=== PATIENT | female | born 1985 | race Caucasian/White ===

== ENCOUNTER 2017-07-29 17:20 | Inpatient (IN) | payer OTHER ==
[~2017-07-29] VITALS: Ht 165.1 cm; Wt 60.0 kg
[2017-07-29 20:58] VITALS: BP 133/88; PULSE 131; TEMP 37.6; O2SAT 95; Ht 165.1 cm; Wt 60.0 kg
[2017-07-29] MEDS ORDERED: CYCL10TA6 PO (22:14)
[2017-07-29] MEDS ORDERED: VNTHFA/IN INH (22:14)
[2017-07-29] MEDS ORDERED: FENT75DI2 (22:14)
[2017-07-29] MEDS ORDERED: SERT50TA PO (22:14)
[2017-07-29] MEDS ORDERED: SUMA100T16 PO (22:14)
[2017-07-29] MEDS ORDERED: GABA800T PO (22:14)
[2017-07-29] MEDS ORDERED: ATRINS NEB (22:14)
[2017-07-29] MEDS ORDERED: LORA-741 PO (22:14)
[2017-07-29] MEDS ORDERED: OXYC20TA50 PO (22:14)
[2017-07-29] MEDS ORDERED: FERR1TAB23 PO (22:14)
[2017-07-29] MEDS ORDERED: ZOLP10TA6 PO (22:14)
[2017-07-29] MEDS ORDERED: VANCOMYCIN INJ 1,000 MG in SODIUM CHLORIDE 0.9% 250ML 250 ML IV STA (22:17)
[2017-07-29] MEDS ORDERED: ALUMINUM/MAGNESIUM/SIMETH (MAALOX MAX) 30 ML UDC PO PRN (22:30)
[2017-07-29] MEDS ORDERED: SODIUM CHLORIDE 0.9% IV SCH (22:30)
[2017-07-29] MEDS ORDERED: DAPTOMYCIN IV SCH (22:30)
[2017-07-29] MEDS ORDERED: ONDANSETRON INJ 2 MG/ML 2 ML VIAL IV PRN (22:30)
[2017-07-29] MEDS ORDERED: ACETAMINOPHEN 325 MG TAB PO PRN (22:30)
[2017-07-29] MEDS ORDERED: MAGNESIUM HYDROXIDE SUSP 30 ML UDC PO PRN (22:30)
[2017-07-29] MEDS ORDERED: ENOXAPARIN 40 MG/0.4 ML SYR SC SCH (22:30)
[2017-07-29] MEDS: AZTREONAM IV 2,000 MG in DEXTROSE 5% 100ML 100 ML IV SCH (23:00)
[2017-07-29] MEDS: NSS + 20MEQ KCL 1000ML 1,000 ML IV SCH (23:08)
[2017-07-29] MEDS ORDERED: PNEUMOCOCCAL POLYSACCHARIDES 25 MCG/0.5 ML VIAL/SYR IM. ONE (23:45)
[2017-07-29] MEDS ORDERED: PNEUMOCOCCAL ADMINISTRATION CHARGE ONE (23:45)
[2017-07-29 23:57] LABS: URINE APPEARANCE TURBID (CLEAR); URINE BILIRUBIN NEG (NEG); URINE COLOR YELLOW; URINE EPITHELIAL CELL AUTO >30 /lpf (0-5); URINE NITRITE NEG (NEG); URINE PH 5.5 (4.5-7.5); URINE SPECIFIC GRAVITY 1.016 (1.000-1.030); UROBILINOGEN NEG (NEG); ZZURINE CULT IF INDIC CATH NO
[2017-07-30 00:06] LABS: INR 3.4 (0.9-1.1); PARTIAL THROMBOPLASTIN RATIO 2.6; PROTHROMBIN TIME (PATIENT) 38.2 SECONDS (9.0-12.0)
[2017-07-30 00:12] LABS: ALB/GLOB RATIO 0.5 (0.9-2); BUN/CREATININE RATIO 32.9 (10-20); CALCIUM 7.9 mg/dl (8.5-10.1); CREATININE 0.63 mg/dl (0.60-1.20); POTASSIUM 2.2 mmol/L (3.5-5.1)
[2017-07-30 00:17] LABS: BASO % 0.1 %; BASO ABS # 0.02 K/uL (0-0.2); COMPLETE YES; DOHLE BODIES 1+; ECHINOCYTES 1+; EOS % 0.4 %; HEMATOCRIT 24.2 % (37-47); HYPOCHROMIA PRESENT; IG% 2.2 %; LYMPH % 5.4 %; MEAN CELL VOLUME 68.6 fL (80-100); MEAN CORPUSCULAR HEMOGLOBIN 21.8 pg (25-34); MEAN CORPUSCULAR HGB CONC 31.8 g/dl (32-36); MEAN PLATELET VOLUME 8.2 fL (7.4-10.4); MICROCYTOSIS PRESENT; MONO % 5.7 %; NEUT % 86.2 %; OVALOCYTES 1+; PLATELET COUNT 406 K/uL (130-400); RED BLOOD COUNT 3.53 M/uL (4.2-5.4); TOXIC GRANULATION 1+; WHITE BLOOD COUNT 14.76 K/uL (4.8-10.8)
[2017-07-30 00:19] LABS: BENZODIAZEPINE, URINE NEG (NEG); COCAINE,URINE NEG (NEG); PHENCYCLIDINE, URINE NEG (NEG)
[2017-07-30 00:22] LABS: MANUAL MICROSCOPIC REQUIRED? NO; REVIEW REQ? YES
[2017-07-30 00:27] VITALS: BP 128/65; PULSE 144; TEMP 38.7; O2SAT 94
[2017-07-30] MEDS ORDERED: NURSING VERBAL MED ORDER ONE (00:30)
[2017-07-30] MEDS ORDERED: DAPTOmycin IV 350 MG in SODIUM CHLORIDE 0.9% 50ML 50 ML IV SCH (00:30)
[2017-07-30] MEDS: POTASSIUM CHLR 10MEQ / WTR IV SCH ×6 (00:32→05:55)
[2017-07-30] MEDS ORDERED: METOPROLOL TARTRATE 1 MG/ML VIAL ONE (00:35)
[2017-07-30] MEDS ORDERED: METOPROLOL TARTRATE 1 MG/ML VIAL IV STA (00:42)
[2017-07-30] MEDS ORDERED: ACETAMINOPHEN 650 MG SUPP PR ONE (00:42)
[2017-07-30] MEDS ORDERED: ACETAMINOPHEN 650 MG SUPP PR STA (00:43)
[2017-07-30] MEDS ORDERED: PHYTONADIONE INJ 10 MG in SODIUM CHLORIDE 0.9% 50ML 50 ML IV STA (01:15)
[2017-07-30] MEDS ORDERED: ALBUMIN HUMAN 25% 12.5 GM/50 ML VIAL IV STA (01:15)
[2017-07-30] MEDS ORDERED: ONDANSETRON INJ 2 MG/ML 2 ML VIAL IV PRN (02:30)
--- NOTE | 2017-07-30 03:02 | History and Physical ---
History & Physical Date & Time of Service: Jul 29, 2017 at 23:30 Chief Complaint: Sepsis, Cellulitis Of The Hand Primary Care Physician: Kareem Edwards D.O. History of Present Illness Source: patient, family, hospital records 32 yo F transfer from / hx of IV Drug abuse , Hx osteomyelitis of the Right Hip followed by Orthopedics in [place] presenting with 7 day hx of right hand swelling. History is per medical record because patient is unable to provide history due to sedation. She presented to outside hospital w/ Right hand swelling after reported fall and injury to hand 1 wk prior to arrival. CT Hand was negative for fx , abscess, or osteomyelitis,. White ct was 18.4 Lactate 2.5, K 2.1, CK 321. She was given a central line after repeated failed attempts to gain peripheral IV access. She got IL IVS x3, 1 gm Vanc and Haldol. Foe Hypokalemia, she was given IV K 20 meq and 40 PO meq K and 25 meq Mg. Past Medical/Surgical History Medical Problems: (1) Femur fracture, right Status: Resolved (2) Osteomyelitis Status: Chronic Family History Patient reports no known family medical history. Social History Smoking Status: Current Every Day Smoker Drug Use: none Housing status: lives with family Immunizations History of Influenza Vaccine: No History of Tetanus Vaccine?: No Tetanus Immunization Date: Jun 10, 2011 History of Pneumococcal: No History of Hepatitis B Vaccine: No Multi-Drug Resistant Organisms History of MDRO: Yes Allergies Coded Allergies: Morphine and Related (Unverified Allergy, Intermediate, HIVES, 03/09/16) Cefazolin (Unverified Allergy, Unknown, ., 03/09/16) Clindamycin (Unverified Allergy, Unknown, ., 03/09/16) Penicillins (Unverified Allergy, Unknown, ., 03/09/16) Home Medications Scheduled Albuterol Hfa (Ventolin Hfa), 2 PUFFS INH Q6H Aztreonam In Dextrose (Azactam), 2,000 MG IV Q8 Daptomycin (Daptomycin), 500 MG IV Q24H Fentanyl (Fentanyl), 1 PATCH Q3 DAYS Gabapentin (Neurontin), 800 MG PO QID Ipratropium [place] (Ipratropium [place]), 1 VIAL NEB Q 4-6 HOURS Metronidazole in NaCl (Metronidazole 500-0.79 mg/100Ml-%), 500 MG IV Q8 Sertraline (Zoloft), 1 TAB PO QID Sodium Chloride Flush (Normal Saline Flush), 125 ML IV UD Review of Systems could not assess due to patient's mental status Physical Exam Vital Signs Date Time Temp Pulse Resp B/P (MAP) Pulse Ox O2 Delivery O2 Flow Rate FiO2 07/29/17 20:58 37.6 131 17 133/88 95 Room Air General Appearance: + pertinent finding GENERAL: toxic appearing, opens eyes to voice, does not follow commands EYE EXAM: normal conjunctiva, PERRL and EOM's grossly intact OROPHARYNX: no exudate, no erythema, lips, buccal mucosa, and tongue normal and mucous membranes are moist NECK: supple, no nuchal rigidity, no adenopathy, non-tender LUNGS: Clear to auscultation. Normal chest wall mechanics HEART: Tachycardic, S1 normal and S2 normal ABDOMEN: abdomen soft, non-tender, normo-active bowel sounds, no masses, no rebound or guarding. BACK: Back is symmetrical on inspection and there is no deformity, no midline tenderness, no CVA tenderness. SKIN: no rashes and no bruising UPPER EXTREMITIES: upper extremities are grossly normal. LOWER EXTREMITIES: Rt hip, bandage in place no purulent drainage NEURO EXAM: could not assess. patient not alert, Diagnostics Laboratory Results Results Past 24 Hours Test 07/29/17 22:12 07/29/17 22:17 07/29/17 22:55 07/29/17 22:56 Range/Units Microbiology Results 07/29/17 Blood Culture, Ordered Pending 07/29/17 Blood Culture, Ordered Pending Impression Assessment and Plan 32 yo F transfer from w/ hx of IV Drug abuse , Hx osteomyelitis of the Right Hip followed by Orthopedics in [place] presenting with 7 day hx of right hand swelling admitted from outside hospital with sepsis likely secondary to cellulitis of RT hand. Sepsis, Rt hand swelling, HX osteomyelitis Rt hip - Suspected Cellulitis in setting of hx of rt hip osteomyelitis, hx of IV drug abuse - Tachycardia, temp 37.6 - Labs prior to arrival: Wht Ct 18.4 Elevated Lactate 2.5 - IV Fluids - Aztreonam, Daptomycin -CBC, Blood cx's - ID consulted -Wound care consult Hypokalemia - IV NS with 20 meq K in addition to K riders x 6 - likely contributor to tachycardia - Recheck AM labs for potassium - Check EKG Tachycardia 130s to 140;s - Dehydration vs. Hypokalemia - BP normal DVT prophylaxis -Lovenox Full code Attending Addendum: I have physically seen and examined this patient, have directed the resident's medical activities, and agree with the H&P as noted above with the following exceptions as noted. The patient is awakens to voice, chronically ill-appearing, does not follow commands, lying in bed and in no acute distress. HEENT--mucous membranes and oropharynx dry. Neck--supple, no JVD or bruits, thyroid normal, trachea midline, no adenopathy. Heart--normal S1 and S2, no extra beats, no murmurs, rubs or gallops. Lungs--few coarse breath sounds, diminished throughout, no respiratory distress , no accessory muscle use. Abdomen--normal bowel sounds and soft, nontender and nondistended, no hernias or masses, no organomegaly. Extremities--no cyanosis, clubbing or edema. There are good distal pulses b/l. Dermatologic--normal skin turgor, normal color, warm and dry, no abnormal lymph nodes, no rash. Neurologic--cranial nerves II through XII grossly intact, motor and sensory examination normal. Rheumatologic--right hand swollen, erythematous and warm Psychiatric--minimally responsive Assessment and Plan: 1. Right hand cellulitis/sepsis-- Daptomycin IV, aztreonam IV Will likely need further imaging to assess for possible osteomyelitis. Consult infectious disease Consult wound care 2. Liver failure-- INR 3.4, with relatively normal other liver function tests. Give vitamin K 10 mg IV. Repeat INR in 4 hours. If no significant improvement, should be transferred to a liver transplant center. 3. Sinus tachycardia/hypotension/hypokalemia-- Albumin is 1.9. Give albumin 25 g IV now, repeat in one hour, and then every 6 hours. When necessary Lopressor IV. Aggressively replace potassium IV and then repeat laboratories after 6K riders. Aggressive fluid rehydration with normal saline with 20 mEq potassium 4. Anemia-- Hemoglobin upon entry is 7.7 Maybe a consumptive basis associated with DIC, in part nutritional, no sign of blood loss. No need for transfusion yet. Level of Care Telemetry Advanced Directives Existing Advance Directive: No Existing Living Will: No Existing Power of Piece [place]: No Resuscitation Status FULL RESUSCITATION VTE Prophylaxis VTE Risk Assessment Done? Y/N: Yes Risk Level: Moderate Given or contraindicated: Enoxaparin (Lovenox)SQ Resident Tracking Resident Involvement: Resident Care Provided Care Provided: Adult Hospital Medicine
[2017-07-30 03:23] VITALS: BP 130/62; PULSE 141; TEMP 37.7; O2SAT 95
[2017-07-30 04:47] LABS: PARTIAL THROMBOPLASTIN RATIO 2.5; PROTHROMBIN TIME (PATIENT) 21.9 SECONDS (9.0-12.0)
[2017-07-30 04:54] LABS: BASO % 0.2 %; BASO ABS # 0.02 K/uL (0-0.2); COMPLETE YES; DOHLE BODIES 1+; EOS % 0.3 %; HEMATOCRIT 22.2 % (37-47); HYPOCHROMIA PRESENT; IG% 1.7 %; LYMPH % 8.1 %; LYMPH ABS # 1.07 K/uL (1.2-3.4); MEAN CELL VOLUME 68.5 fL (80-100); MEAN CORPUSCULAR HEMOGLOBIN 21.6 pg (25-34); MEAN CORPUSCULAR HGB CONC 31.5 g/dl (32-36); MEAN PLATELET VOLUME 8.2 fL (7.4-10.4); MICROCYTOSIS PRESENT; MONO % 6.7 %; PLATELET COUNT 360 K/uL (130-400); POIKILOCYTOSIS PRESENT; RED BLOOD COUNT 3.24 M/uL (4.2-5.4); TOXIC GRANULATION 1+; WHITE BLOOD COUNT 13.16 K/uL (4.8-10.8)
[2017-07-30] MEDS: AZTREONAM IV 2,000 MG in DEXTROSE 5% 100ML 100 ML IV SCH ×2 (05:29→05:47)
[2017-07-30] MEDS ORDERED: ALBUMIN HUMAN 25% 12.5 GM/50 ML VIAL IV SCH (06:00)
[2017-07-30] MEDS: NSS + 20MEQ KCL 1000ML 1,000 ML IV SCH (06:14)
[2017-07-30 07:55] VITALS: BP 125/84; PULSE 120; TEMP 37; O2SAT 88
[2017-07-30] MEDS ORDERED: NSS + 20MEQ KCL 1000ML 1,000 ML IV SCH (08:17)
[2017-07-30 09:16] LABS: BUN/CREATININE RATIO 37.9 (10-20); CALCIUM 8.3 mg/dl (8.5-10.1); CREATININE 0.52 mg/dl (0.60-1.20); POTASSIUM 2.4 mmol/L (3.5-5.1)
[2017-07-30 09:18] LABS: HEMATOCRIT 21.5 % (37-47); MEAN CELL VOLUME 68.7 fL (80-100); MEAN CORPUSCULAR HGB CONC 32.1 g/dl (32-36); MEAN PLATELET VOLUME 7.8 fL (7.4-10.4); PLATELET COUNT 342 K/uL (130-400); RED BLOOD COUNT 3.13 M/uL (4.2-5.4); WHITE BLOOD COUNT 12.37 K/uL (4.8-10.8)
[2017-07-30 09:20] LABS: BASO % 0.1 %; BASO ABS # 0.01 K/uL (0-0.2); COMPLETE YES; DOHLE BODIES 1+; EOS % 0.7 %; IG% 2.2 %; LYMPH % 9.9 %; LYMPH ABS # 1.22 K/uL (1.2-3.4); MICROCYTOSIS PRESENT; MONO % 5.3 %; NEUT % 81.8 %; PLT ESTIMATE NORMAL; TARGET CELLS 1+; TOXIC GRANULATION 1+
[2017-07-30 09:24] LABS: FERRITIN 137.5 ng/ml (8.0-388.0); PHOSPHORUS 1.6 mg/dl (2.5-4.9)
[2017-07-30] MEDS ORDERED: POTASSIUM PHOS 3 MMOL/1 ML INFUSION IV STA (09:35)
[2017-07-30] MEDS ORDERED: POTASSIUM PHOSPHATE INJ 30 MMOL in SODIUM CHLORIDE 0.9% 500ML 500 ML IV ONE (10:30)
[2017-07-30 11:12] VITALS: BP 133/61; PULSE 122; TEMP 38.4; O2SAT 100
[2017-07-30] MEDS: POTASSIUM CHLR 20 MEQ / WTR 20 MEQ in PREMIXED WATER 100 ML IV SCH ×2 (11:15→13:18)
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
--- NOTE | 2017-07-30 13:36 | ECHOCARDIOGRAM REPORT ---
*NOTICE TO RECEIVING CONSTITUTION PARTY AGENCY This information is strictly Confidential and protected under [place] law. [place] law prohibits you from making any further disclosure of this information unless further disclosure is expressly permitted by the written consent of the person to whom it pertains or is authorized by law. A general authorization for the release of medical or other information is not sufficient for this purpose. Hospital accepts no responsibility if the information is made available to any other person, INCLUDING THE PATIENT. Interpretation Summary * Conclusions -- * 1. Normal LV size and wall thickness. * 2. Normal LV systolic function. LVEF 65-70%. No regional wall motion abnormalities. * 3. Normal RV size and function. * 4. No significant valvular pathology. * 5. No prior studies for comparison. Procedure Details * Left Ventricle The left ventricle is grossly normal size. There is normal left ventricular wall thickness. Ejection Fraction = 65-70%. * Right Ventricle The right ventricle is grossly normal size. The right ventricular systolic function is normal as assessed by tricuspid annular plane systolic excursion (TAPSE) (normal >1.5 cm). * Atria The left atrial size is normal. Right atrial size is normal. * Mitral Valve The mitral valve is grossly normal. There is no mitral valve stenosis. Significant mitral regurgitation is absent. * Tricuspid Valve The tricuspid valve is not well visualized, but is grossly normal. There is no tricuspid stenosis. Significant tricuspid regurgitation is absent. * Aortic Valve The aortic valve opens well. No hemodynamically significant valvular aortic stenosis. There is no significant aortic regurgitation. * Pulmonic Valve The pulmonary valve is inadequately visualized, but the Doppler data is adequate for interpretation. Pulmonic stenosis is absent. There is no significant pulmonary regurgitation. * Great Vessels The aortic root and proximal ascending aorta are normal sized. * Pericardium/Pleural There is no pericardial effusion. * Great Vessels Normal inferior vena cava size and collapsability with sniff indicates a normal right atrial pressure of 3 mmHg * * MMode 2D Measurements and Calculations * RVDd 3.4 cm * IVSd 0.81 cm * * LVIDd 4.5 cm * LVIDs 2.5 cm * LVPWd 0.85 cm * * IVS/LVPW 0.95 * FS 45.6 % * EDV(Teich) 92.6 ml * ESV(Teich) 21.2 ml * EF(Teich) 77.1 % * * EDV(cubed) 91.4 ml * ESV(cubed) 14.7 ml * EF(cubed) 83.9 % * * LV mass(C)d 119.1 grams * LV mass(C)dI 71.8 grams/m\S\2 * * SV(Teich) 71.4 ml * SI(Teich) 43.1 ml/m\S\2 * SV(cubed) 76.7 ml * SI(cubed) 46.2 ml/m\S\2 * * Ao root diam 2.7 cm * Ao root area 5.8 cm\S\2 * * LVOT diam 2.1 cm * LVOT area 3.5 cm\S\2 * * LVAd ap4 31.6 cm\S\2 * LVLd ap4 9.0 cm * EDV(MOD-sp4) 90.4 ml * EDV(sp4-el) 93.6 ml * LVAs ap4 16.3 cm\S\2 * LVLs ap4 7.5 cm * ESV(MOD-sp4) 31.1 ml * ESV(sp4-el) 30.1 ml * EF(MOD-sp4) 65.6 % * EF(sp4-el) 67.8 % * * LVAd ap2 31.1 cm\S\2 * LVLd ap2 9.1 cm * EDV(MOD-sp2) 88.0 ml * EDV(sp2-el) 89.7 ml * LVAs ap2 13.4 cm\S\2 * LVLs ap2 7.3 cm * ESV(MOD-sp2) 22.6 ml * ESV(sp2-el) 21.0 ml * EF(MOD-sp2) 74.3 % * EF(sp2-el) 76.5 % * * LVLd %diff 1.1 % * EDV(MOD-bp) 89.6 ml * LVLs %diff -2.96 % * ESV(MOD-bp) 26.8 ml * EF(MOD-bp) 70.1 % * * SV(MOD-sp4) 59.3 ml * SI(MOD-sp4) 35.8 ml/m\S\2 * * SV(MOD-sp2) 65.3 ml * SI(MOD-sp2) 39.4 ml/m\S\2 * * SV(MOD-bp) 62.8 ml * SI(MOD-bp) 37.9 ml/m\S\2 * * SV(sp4-el) 63.5 ml * SI(sp4-el) 38.3 ml/m\S\2 * * SV(sp2-el) 68.7 ml * SI(sp2-el) 41.4 ml/m\S\2 * * * Doppler Measurements and Calculations * MV E max brenda 88.4 cm/sec * MV A max brenda 67.4 cm/sec * * MV E/A 1.3 * * MV dec time 0.14 sec * * Ao V2 max 188.3 cm/sec * Ao max PG 14.2 mmHg * Ao max PG (full) 3.8 mmHg * AYAAN(V,A) 3.0 cm\S\2 * AYAAN(V,D) 3.0 cm\S\2 * * LV V1 max PG 10.4 mmHg * * LV V1 max 161.1 cm/sec * * TR max brenda 286.4 cm/sec * * *
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
[2017-07-30] MEDS ORDERED: METRONIDAZOLE / NSS 500 MG in PREMIXED NSS 100 ML IV SCH (14:00)
[2017-07-30] MEDS ORDERED: POTASSIUM CHLR 20 MEQ / WTR 20 MEQ in PREMIXED WATER 100 ML IV ONE (14:45)
[2017-07-30 15:00] VITALS: BP 144/67; PULSE 125; TEMP 37.9; O2SAT 98
[2017-07-30] MEDS ORDERED: [UNRECOGNIZED DRUG - CODE] IV (15:01)
[2017-07-30] MEDS ORDERED: DAPT500I IV (15:01)
[2017-07-30] MEDS ORDERED: SODI0.9I55 IV (15:01)
[2017-07-30] MEDS ORDERED: METR1INJ2 IV (15:01)
--- NOTE | 2017-07-30 15:04 | Discharge Instructions ---
Discharge Instructions Date of Service Jul 30, 2017. Admission Reason for Admission: Sepsis, Cellulitis Of The Hand Discharge Discharge Diagnosis / Problem: sepsis, hand infection Discharge Goals Goal(s): Diagnostic testing, Therapeutic intervention Activity Recommendations Activity Level: Assistance Required . Additional Information Patient informed of condition: No Advance Directives: No DNR: No Level of Care: Other Communicable Disease: Yes (hand infection of yet to be determined bacteria) Prognosis: Other (requiring interventions not available here) Instructions / Follow-Up Instructions / Follow-Up see medical discharge summary Current Hospital Diet Discharge Diet Recommended Diet: N/A (NPO, did have sips up to about 1p but no solids) Pending Studies Studies pending at discharge: yes List of pending studies: blood cultures done at [facility] and [facility] drawn at admission no growth yet Medical Emergencies . Who to Call and When: Medical Emergencies: If at any time you feel your situation is an emergency, please call 911 immediately. . Non-Emergent Contact Non-Emergency issues call your: Primary Care Provider . . "Provider Documentation" section prepared by Robby Huang. . Core Measure Problem Core Measures: None
[2017-07-30 15:07] LABS: BUN/CREATININE RATIO 23.1 (10-20); CALCIUM 7.5 mg/dl (8.5-10.1); CREATININE 0.63 mg/dl (0.60-1.20); POTASSIUM 3.1 mmol/L (3.5-5.1)
--- NOTE | 2017-07-30 15:12 | Discharge Summary ---
Discharge Summary Date of Service Jul 30, 2017. Discharge Summary Admission Date: Jul 29, 2017 at 21:08 Discharge Date: Jul 30, 2017 Discharge Disposition: Acute care facility Principal Diagnosis: sepsis hand cellulitis Problems/Secondary Diagnoses: full dc summary to follow by R1 Dr Heard, but in order to facilitate care at [facility] prelim dc summary with this document Immunizations: Have You Had Influenza Vaccine: No History of Tetanus Vaccine?: No Tetanus Immunization Date: Jun 10, 2011 History of Pneumococcal: No History of Hepatitis B Vaccine: No Procedures: echo (transthoracic) without vegetations CT hand at [facility] findings c/w cellulitis but no abscess/air labs w leukocytosis (improving) lactic acidosis (improving), anemia (mother believes chronic - Hgb ~7 stable) Fe deficiency cultures pending (both here and at [facility]) Consultations: ID ortho Medication Reconciliation New Medications: Aztreonam In Dextrose (Azactam) 1 Inj Inj 2000 MG IV Q8, #1 UNIT Daptomycin (Daptomycin) 500 Mg Inj 500 MG IV Q24H, #1 UNIT last dose at 0030 07/30 Metronidazole in NaCl (Metronidazole 500-0.79 mg/100Ml-%) 1 Inj Inj 500 MG IV Q8, #1 UNIT Sodium Chloride Flush (Normal Saline Flush) 0.9 % Inj 125 ML IV UD, #1 UNIT currently on NSS w 20K @ 125/hr Continued Medications: Albuterol Hfa (Ventolin Hfa) 200 Puffs/73665 Mcg Aers 2 PUFFS INH Q6H for Shortness of Breath, #1 INHALER Fentanyl (Fentanyl) 75 Mcg/Hr Dis 1 PATCH Q3 DAYS Gabapentin (Neurontin) 800 Mg Tab 800 MG PO QID, TAB Ipratropium [place] (Ipratropium [place]) 0.5 Mg/2.5 Ml Nebu 1 VIAL NEB Q 4-6 HOURS for Shortness of Breath for 30 Days, #300 ML 5 Refills Sertraline (Zoloft) 50 Mg Tab 1 TAB PO QID for 30 Days, #120 TAB 2 Refills Discontinued Medications: Cyclobenzaprine Hcl (Flexeril) 10 Mg Tab 1 TAB PO BID for 30 Days, #60 TAB Ferrous Sulfate (Iron) 325 Mg Tab 325 MG PO BID Lorazepam (Ativan) 0.5 Mg Tab 0.5 MG PO DAILY PRN for Anxiety, TAB Oxycodone Hcl (Oxycontin) 20 Mg Tab 0.5 TAB PO QID for 30 Days, #60 TAB Sumatriptan Succinate (Imitrex) 100 Mg Tab 100 MG PO PRN for Headache, TAB Zolpidem Tartrate (Zolpidem Tartrate) 10 Mg Tab 1 TAB PO HS PRN for Insomnia for 30 Days, #30 TAB 2 Refills Discharge Exam Physical Exam: General Appearance: + mild distress (off and on somnolent although fatigued/ oriented when awake) Eyes: EOMI ENT: hearing grossly normal, + pertinent finding (tongue w blood, laceration across tongue) Neck: trachea midline Respiratory/Chest: lungs clear, normal breath sounds, no respiratory distress, no accessory muscle use Cardiovascular: + tachycardia Abdomen / GI: non tender, soft Extremities: + pertinent finding (R hand large ulceration w exudate across extensor surface, distally n/v intact but swollen, errythematous and scattered ulcerations, L hand also swollen w some erythema no ulcerations or lesions) Neurologic/Psychiatric: health services director II-XII nml as tested, alert Skin: normal color, warm/dry, + pertinent finding (R hand dense diffuse erythema, L hand smaller area of erythema. legs w various ulcerations in various stages of healing none with erythema or exudate) Hospital Course fell ~2 days ago at home, hurt hand. stayed at home but apparently the next day hand still hurt a lot - something popped sounds like exudate came out - then later that day was more unresponsive and talking gibberish, brought to [facility] found to be septic transferred here - septic from hand, ddx being hand infection from skin trauma/ bacterial superinfection vs hand infection w more aggressive staph/toxin mediated staph vs (with L hand and other scattered ulcers) endocarditis (pt and fiance deny IVDA currently, but did previously and mom notes possible), less likely that chronic hip infection involved. 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 Discharge Instructions Please refer to the electronic Patient Visit Report (Discharge Instructions) for additional information.
[2017-07-30] MEDS ORDERED: MEPERIDINE HCL 25 MG/ML CARP IV ONE (15:15)
[2017-07-30 16:29] VITALS: BP 144/67; PULSE 125; TEMP 37.9; O2SAT 98
--- NOTE | 2017-07-30 21:02 | Discharge Summary ---
Discharge Summary Date of Service Jul 30, 2017. Discharge Summary Admission Date: Jul 29, 2017 at 21:08 Discharge Date: Jul 30, 2017 Discharge Disposition: Acute care facility Principal Diagnosis: sepsis, hand cellulitis Problems/Secondary Diagnoses: R hip osteomyelitis Hupokalemia Tachycardia Immunizations: Have You Had Influenza Vaccine: No History of Tetanus Vaccine?: No Tetanus Immunization Date: Jun 10, 2011 History of Pneumococcal: No History of Hepatitis B Vaccine: No Procedures: echo (transthoracic) without vegetations Interpretation Summary * Conclusions -- * 1. Normal LV size and wall thickness. * 2. Normal LV systolic function. LVEF 65-70%. No regional wall motion abnormalities. * 3. Normal RV size and function. * 4. No significant valvular pathology. * 5. No prior studies for comparison. Procedure Details * Left Ventricle The left ventricle is grossly normal size. There is normal left ventricular wall thickness. Ejection Fraction = 65-70%. * Right Ventricle The right ventricle is grossly normal size. The right ventricular systolic function is normal as assessed by tricuspid annular plane systolic excursion (TAPSE) (normal >1.5 cm). * Atria The left atrial size is normal. Right atrial size is normal. * Mitral Valve The mitral valve is grossly normal. There is no mitral valve stenosis. Significant mitral regurgitation is absent. * Tricuspid Valve The tricuspid valve is not well visualized, but is grossly normal. There is no tricuspid stenosis. Significant tricuspid regurgitation is absent. * Aortic Valve The aortic valve opens well. No hemodynamically significant valvular aortic stenosis. There is no significant aortic regurgitation. * Pulmonic Valve The pulmonary valve is inadequately visualized, but the Doppler data is adequate for interpretation. Pulmonic stenosis is absent. There is no significant pulmonary regurgitation. * Great Vessels The aortic root and proximal ascending aorta are normal sized. * Pericardium/Pleural There is no pericardial effusion. * Great Vessels Normal inferior vena cava size and collapsability with sniff indicates a normal right atrial pressure of 3 mmHg * * MMode 2D Measurements and Calculations * RVDd 3.4 cm * IVSd 0.81 cm * * LVIDd 4.5 cm * LVIDs 2.5 cm * LVPWd 0.85 cm * * IVS/LVPW 0.95 * FS 45.6 % * EDV(Teich) 92.6 ml * ESV(Teich) 21.2 ml * EF(Teich) 77.1 % * * EDV(cubed) 91.4 ml * ESV(cubed) 14.7 ml * EF(cubed) 83.9 % * * LV mass(C)d 119.1 grams * LV mass(C)dI 71.8 grams/m\S\2 * * SV(Teich) 71.4 ml * SI(Teich) 43.1 ml/m\S\2 * SV(cubed) 76.7 ml * SI(cubed) 46.2 ml/m\S\2 * * Ao root diam 2.7 cm * Ao root area 5.8 cm\S\2 * * LVOT diam 2.1 cm * LVOT area 3.5 cm\S\2 * * LVAd ap4 31.6 cm\S\2 * LVLd ap4 9.0 cm * EDV(MOD-sp4) 90.4 ml * EDV(sp4-el) 93.6 ml * LVAs ap4 16.3 cm\S\2 * LVLs ap4 7.5 cm * ESV(MOD-sp4) 31.1 ml * ESV(sp4-el) 30.1 ml * EF(MOD-sp4) 65.6 % * EF(sp4-el) 67.8 % * * LVAd ap2 31.1 cm\S\2 * LVLd ap2 9.1 cm * EDV(MOD-sp2) 88.0 ml * EDV(sp2-el) 89.7 ml * LVAs ap2 13.4 cm\S\2 * LVLs ap2 7.3 cm * ESV(MOD-sp2) 22.6 ml * ESV(sp2-el) 21.0 ml * EF(MOD-sp2) 74.3 % * EF(sp2-el) 76.5 % * * LVLd %diff 1.1 % * EDV(MOD-bp) 89.6 ml * LVLs %diff -2.96 % * ESV(MOD-bp) 26.8 ml * EF(MOD-bp) 70.1 % * * SV(MOD-sp4) 59.3 ml * SI(MOD-sp4) 35.8 ml/m\S\2 * * SV(MOD-sp2) 65.3 ml * SI(MOD-sp2) 39.4 ml/m\S\2 * * SV(MOD-bp) 62.8 ml * SI(MOD-bp) 37.9 ml/m\S\2 * * SV(sp4-el) 63.5 ml * SI(sp4-el) 38.3 ml/m\S\2 * * SV(sp2-el) 68.7 ml * SI(sp2-el) 41.4 ml/m\S\2 * * * Doppler Measurements and Calculations * MV E max brenda 88.4 cm/sec * MV A max brenda 67.4 cm/sec * * MV E/A 1.3 * * MV dec time 0.14 sec * * Ao V2 max 188.3 cm/sec * Ao max PG 14.2 mmHg * Ao max PG (full) 3.8 mmHg * AYAAN(V,A) 3.0 cm\S\2 * AYAAN(V,D) 3.0 cm\S\2 * * LV V1 max PG 10.4 mmHg * * LV V1 max 161.1 cm/sec * * TR max brenda 286.4 cm/sec CT hand at [facility] findings c/w cellulitis but no abscess/air labs w leukocytosis (improving) lactic acidosis (improving), anemia (mother believes chronic - Hgb ~7 stable) Fe deficiency cultures pending (both here and at [facility]) Consultations: ID: Dr. Anna Necrotic infection of right hand in IV drug abuser, with prior history of MRSA infections, likely with need for aggressive surgical debridement. Would recommend repeat imaging, but transfer to tertiary care center being discussed. Have added metronidazole for anaerobic coverage given the possibility of polymicrobial infection in the setting of drug abuse. Ortho: Dr. Bruno Chronic right hip osteomyelitis with currently actively draining wound, right hand wound with necrotic tissue over the dorsal with likely fluid collection under the wound and left hand cellulitis This patient is unfortunately very highly complex and difficult situation to manage. Per report there was a CT scan of the right hand that was negative for fluid collection our Y suspicion based on her physical exam is that his change since the time of that imaging. Wound over the dorsal hand appears to be necrotic. I examined the significant bogginess and likely fluid collection underneath the wound. Given her previous history and would be concerning for an aggressive infection after IV drug use into the hand. Given the extent of the wound and the level necrosis she will likely have other exposed tendons and/ or bone and require extensive reconstructive type procedures. I don't feel that this is something we are equipped to manage here. On a more complex level is her chronic osteomyelitis of the right hip. She is currently actively draining from the wound. Per the mother her treating orthopedic surgeons had been recommending amputation of her hip to treat her chronic infections. Based on the x-rays the mother shown me, my suspicion is it would either be a hip disarticulation or even a pelvic hemipelvectomy. This unfortunately is a patient that this simply too complex for us to appropriately treat from an orthopedic standpoint. My recommendation would be for her to be transferred to a tertiary care facility and as she has been treated at [facility] in the past that would be my recommendation for transfer. Medication Reconciliation New Medications: Aztreonam In Dextrose (Azactam) 1 Inj Inj 2000 MG IV Q8, #1 UNIT Daptomycin (Daptomycin) 500 Mg Inj 500 MG IV Q24H, #1 UNIT last dose at 0030 07/30 Metronidazole in NaCl (Metronidazole 500-0.79 mg/100Ml-%) 1 Inj Inj 500 MG IV Q8, #1 UNIT Sodium Chloride Flush (Normal Saline Flush) 0.9 % Inj 125 ML IV UD, #1 UNIT currently on NSS w 20K @ 125/hr Continued Medications: Albuterol Hfa (Ventolin Hfa) 200 Puffs/12262 Mcg Aers 2 PUFFS INH Q6H for Shortness of Breath, #1 INHALER Fentanyl (Fentanyl) 75 Mcg/Hr Dis 1 PATCH Q3 DAYS Gabapentin (Neurontin) 800 Mg Tab 800 MG PO QID, TAB Ipratropium [place] (Ipratropium [place]) 0.5 Mg/2.5 Ml Nebu 1 VIAL NEB Q 4-6 HOURS for Shortness of Breath for 30 Days, #300 ML 5 Refills Sertraline (Zoloft) 50 Mg Tab 1 TAB PO QID for 30 Days, #120 TAB 2 Refills Discontinued Medications: Cyclobenzaprine Hcl (Flexeril) 10 Mg Tab 1 TAB PO BID for 30 Days, #60 TAB Ferrous Sulfate (Iron) 325 Mg Tab 325 MG PO BID Lorazepam (Ativan) 0.5 Mg Tab 0.5 MG PO DAILY PRN for Anxiety, TAB Oxycodone Hcl (Oxycontin) 20 Mg Tab 0.5 TAB PO QID for 30 Days, #60 TAB Sumatriptan Succinate (Imitrex) 100 Mg Tab 100 MG PO PRN for Headache, TAB Zolpidem Tartrate (Zolpidem Tartrate) 10 Mg Tab 1 TAB PO HS PRN for Insomnia for 30 Days, #30 TAB 2 Refills Discharge Exam NOTE: Review of systems limited by Patient's obtunded Mental status Physical Exam: General Appearance: + mild distress (off and on somnolent although fatigued/ oriented when awake) Eyes: EOMI ENT: hearing grossly normal, + pertinent finding (tongue w blood, laceration across tongue) Neck: trachea midline Respiratory/Chest: lungs clear, normal breath sounds, no respiratory distress, no accessory muscle use Cardiovascular: + tachycardia Abdomen / GI: non tender, soft Extremities: + pertinent finding (R hand large ulceration w exudate across extensor surface, distally n/v intact but swollen, errythematous and scattered ulcerations, L hand also swollen w some erythema no ulcerations or lesions) 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 legs w various ulcerations in various stages of healing none with erythema or exudate) Review of Systems: ENT: + problem reported (tongue bleeding/bite) Respiratory: + shortness of breath Musculoskeletal: + joint pain, + problem reported (reported R leg and hand pain) Endocrine: + problem reported (asked for soda, reported thirst) Hospital Course 32 yo F transferred from [facility] w/ hx of IV Drug abuse, and osteomyelitis of right hip (followed by Orthopedics in [place]) presented with right hand swelling secondary to fall last Tuesday (07/26) and sepsis. Sepsis and R hand swelling in the setting of R hip osteomyelitis Unable to obtain a complete history as pt is obtunded however according to records and patient's 8 year old daughter, she fell on hand on Tuesday (07/26) while going down the steps. A blister then formed on her hand which mom popped and something came out (sounds like exudate). Then that day she was unresponsive and talking gibberish and was brought to [facility] where she was found to be septic. At [place], WBC 18.4, lactate 2.1, CT hand negative for fracture, abscess or osteomylitis, CK 321, central line placed after multiple failed peripheral IV access attempts, given vancomycin, haldol, 3L IVF, 20meq of K, and 25 meq of Mg. Here: Pt determined to be septic from hand. The differential being hand infection from skin trauma/bacterial superinfection vs hand infection with more aggressive staph/toxin mediated staph vs (given L hand and other scattered ulcers) endocarditis. Pt and fiance deny IVDA currently, but did previously and mom notes possible. It is less likely that chronic hip infection is involved. R hip has chronic exudative and granulomatous changes but no acute appearing erythema. Patient was tachycardic in the 130-140s with Tmax of 38.7 but her BP remained normal. WBC improved to 12.37 here and lactate improved to 1.1. Patient received multiple boluses of IV fluids with K and 30mmol of KPO4 for Phosphorus of 1.6. Was started on IV Daptomycin and Aztreonam. 2 blood cultures were obtained which are pending and pt had 2 blood cultures less than 24 hours old at [facility] which were so far negative. Wound care and ID were consulted as well as ortho. Ortho saw patient and realized given chronic actively draining right hip osteomyelitis and right hand wound with dorsal necrotic tissue most likely from an aggressive infection after IV drug use into the hand that given the extent of the wound and the level necrosis she will likely have exposed tendons and/or bone if debrided and require extensive reconstructive type procedures, which we are not equipped to manage here. Per the mother, her orthopedic surgeons had been recommending amputation of her hip to treat her chronic infections likely either a hip disarticulation or a pelvic hemipelvectomy. He recommended transfer to a tertiary care facility in particular [facility] given she has established orthopedic care there in the past. 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 Added metronidazole for anaerobic coverage given the possibility of polymicrobial infection in the setting of drug abuse. Hypokalemia: IV NS with 20 meq K in addition to K riders x 6 and 40meQ used to treat hypokalemia of 2.1 (increased to 2.4 on AM labs) after which she was given more K but pt was transferred before further labs could be obtained. Likely also contributed to tachycardia in addition to sepsis. EKG obtained. Tachycardia 130s to 140s: Likely from sepsis vs dehydration vs. Hypokalemia but BP remained normal Care d/w [facility] wrist closer (pt active with [facility] ortho for chronic R hip infection ) for transfer to [facility] via air for definitive care Total Time Spent: Greater than 30 minutes This includes examination of the patient, discharge planning, medication reconciliation, and communication with other providers. Discharge Instructions Please refer to the electronic Patient Visit Report (Discharge Instructions) for additional information. Additional Copies To Kareem Edwards D.O.
[2017-07-31] MEDS ORDERED: DAPTOmycin IV 350 MG in SODIUM CHLORIDE 0.9% 50ML 50 ML IV SCH (00:30)
== END 2017-07-30 16:38 | disposition short-term general hospital (02) | DRG 872 ==
LOC: C.2E 21:08
PROVIDERS: ADMIT Family Medicine; ATTEND Family Medicine
DX: A41.9 Sepsis, unspecified organism (principal); L03.113 Cellulitis of right upper limb; M86.9 Osteomyelitis, unspecified; I96 Gangrene, not elsewhere classified; R65.20 Severe sepsis without septic shock; K72.90 Hepatic failure, unspecified without coma; D64.9 Anemia, unspecified; E87.6 Hypokalemia; F17.200 Nicotine dependence, unspecified, uncomplicated; Z79.899 Other long term (current) drug therapy; Z87.898 Personal history of other specified conditions; Z86.14 Personal history of Methicillin resistant Staphylococcus aureus infection

== ENCOUNTER 2018-04-14 16:29 | Emergency (ER) | payer OTHER ==
[~2018-04-14] VITALS: Ht 167.6 cm; Wt 61.5 kg
[~2018-04-14 16:29] MED LIST: ATRINS NEB; DAPT500I IV; FENT75DI2; GABA800T PO; METR1INJ2 IV; SERT50TA PO; SODI0.9I55 IV; VNTHFA/IN INH; [UNRECOGNIZED DRUG - CODE] IV
[2018-04-14 16:33] VITALS: TEMP 36.6; Ht 167.6 cm; Wt 61.5 kg
[2018-04-14] MEDS ORDERED: HYDROmorphone INJ 1 MG/ML SYR IV STA (16:50)
[2018-04-14] MEDS ORDERED: SODIUM CHLORIDE 0.9% 1000ML 1,000 ML IV STA (17:03)
[2018-04-14] MEDS ORDERED: ONDANSETRON INJ 2 MG/ML 2 ML VIAL IV STA (17:03)
[2018-04-14 17:59] LABS: ALBUMIN 2.8 gm/dl (3.4-5.0); CALCIUM 8.5 mg/dl (8.5-10.1); CREATININE 0.55 mg/dl (0.60-1.20); TOTAL PROTEIN 7.7 gm/dl (6.4-8.2)
[2018-04-14] MEDS ORDERED: FERR1TAB62 PO (18:21)
[2018-04-14] MEDS ORDERED: CYCL10TA6 PO (18:21)
[2018-04-14] MEDS ORDERED: OXYC-292 PO (18:21)
[2018-04-14] MEDS ORDERED: FNTTP50 TD (18:21)
[2018-04-14] MEDS ORDERED: ZOLP10TA PO (18:21)
[2018-04-14 18:22] LABS: BASO % 0.4 %; BASO ABS # 0.03 K/uL (0-0.2); EOS % 9.3 %; HEMATOCRIT 32.1 % (37-47); HEMOGLOBIN 10.1 g/dL (12.0-16.0); IG# 0.02 K/uL (0.00-0.02); LYMPH % 30.1 %; LYMPH ABS # 2.27 K/uL (1.2-3.4); MEAN CELL VOLUME 81.5 fL (80-100); MEAN CORPUSCULAR HEMOGLOBIN 25.6 pg (25-34); MEAN CORPUSCULAR HGB CONC 31.5 g/dl (32-36); MEAN PLATELET VOLUME 8.8 fL (7.4-10.4); MONO ABS # 0.53 K/uL (0.11-0.59); NEUT % 52.9 %; NEUT ABS # 3.99 K/uL (1.4-6.5); PLATELET COUNT 357 K/uL (130-400); RED CELL DISTRIBUTION WIDTH SD 51.2 fL (36.4-46.3); WHITE BLOOD COUNT 7.54 K/uL (4.8-10.8)
--- NOTE | 2018-04-14 19:14 | DIAGNOSTIC IMAGING REPORT ---
PELVIS 1 OR 2 VIEW ROUTINE CLINICAL HISTORY: Right hip pain and bleeding. COMPARISON STUDY: CT of the abdomen and pelvis March 09, 2016. FINDINGS: Left femoral internal fixation hardware is partially imaged. There are endovascular coils within the right hemipelvis. Extensive post traumatic/postoperative findings are noted with chronic deformity of the right hip which is similar appearance to exam of March 09, 2016. Skin chris are present. Sclerosis of the right acetabulum and proximal right femur are noted with absence of the femoral head and flattening of the acetabulum. No acute fracture is identified within the pelvis or his. IVC filter is incidentally noted. IMPRESSION: Stable postsurgical/posttraumatic findings within the pelvis and right hip since CT of March 09, 2016 with absence of the femoral head and flattening of the acetabulum with associated sclerosis. No acute fracture. Electronically signed by: Anatoly Bustos M.D. 04/14/2018 7:12 PM Dictated Date/Time: 04/14/2018 7:10 PM
--- NOTE | 2018-04-14 19:25 | DIAGNOSTIC IMAGING REPORT ---
R FEMUR 2 VIEWS ROUTINE CLINICAL HISTORY: Right hip pain and bleeding. COMPARISON: MRI of the pelvis and right hip January 27, [address] of the abdomen and pelvis September 08, 2016. 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 Cement within the proximal right femur from previous arthroplasty is noted. The hardware has been removed. Sclerosis within the acetabulum is chronic. Deformity is unchanged and CT of March 09, 2016. There is no acute fracture within the right femur. IMPRESSION: Stable postsurgical/posttraumatic findings within the right hip since CT of March 09, 2016. No acute fracture. Electronically signed by: Anatoly Bustos M.D. 04/14/2018 7:24 PM Dictated Date/Time: 04/14/2018 7:22 PM
--- NOTE | 2018-04-14 19:28 | DIAGNOSTIC IMAGING REPORT ---
FLUOROSCOPIC IMAGES OF THE LUMBAR SPINE CLINICAL HISTORY: Lower back pain status post fall. COMPARISON: CT of the abdomen and pelvis March 09, 2016. FLUOROSCOPY TIME: FINDINGS: IVC filter and right iliac coils are incidentally noted. Chronic right acetabular deformity is better depicted on the pelvis radiograph. Alignment of the lumbar spine is anatomic. There is no acute fracture. There is mild endplate osteophytosis within the lumbar spine. IMPRESSION: 1. No acute lumbar spine fracture or subluxation. 2. Minimal multilevel degenerative changes of the lumbar spine. Electronically signed by: Anatoly Bustos M.D. 04/14/2018 7:27 PM Dictated Date/Time: 04/14/2018 7:25 PM
[2018-04-14] MEDS ORDERED: HYDROmorphone INJ 0.5 MG/0.5 ML SYR IV STA (20:10)
[2018-04-14 21:29] VITALS: BP 116/67; PULSE 86; O2SAT 98
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
== END 2018-04-14 21:30 | disposition home or self-care (01) ==
LOC: C.EDB 16:31 → C.EDA 21:30
DX: M96.830 Postprocedural hemorrhage of a musculoskeletal structure following a musculoskeletal system procedure (principal); M25.551 Pain in right hip; M62.830 Muscle spasm of back; W18.2XXA Fall in (into) shower or empty bathtub, initial encounter; F17.200 Nicotine dependence, unspecified, uncomplicated; Z98.890 Other specified postprocedural states; Z87.81 Personal history of (healed) traumatic fracture; Z86.19 Personal history of other infectious and parasitic diseases; Z88.6 Allergy status to analgesic agent